=== PATIENT | female | born 1930 | race Caucasian/White ===

== ENCOUNTER 2018-12-22 10:49 | Day surgery (SDC) | payer MEDICARE, OTHER ==
[~2018-12-22] VITALS: Ht 152.4 cm; Wt 65.0 kg
[2018-12-22] VITALS (8 sets, daily range): BP systolic 124–154; BP diastolic 79–99
[2018-12-22] MEDS ORDERED: normal saline 1000ml 1,000 ML IV SCH (11:25)
[2018-12-22 11:56] LABS: BASOPHILS % (AUTO) 0.7 % (0-1); EOSINOPHILS # (AUTO) 0.1 X10'3 (0-0.9); EOSINOPHILS % (AUTO) 0.9 % (0-6); HEMATOCRIT 48.3 % (35.0-45.0); HEMOGLOBIN 16.1 g/dl (12.0-16.0); LYMPHOCYTES # (AUTO) 2.1 X10'3 (1.1-4.8); LYMPHOCYTES % (AUTO) 35.8 % (21-51); MEAN CORPUSCULAR HEMOGLOBIN 31.4 PG (27.0-31.0); MEAN CORPUSCULAR HGB CONC 33.3 g/dL (33.0-36.5); MEAN CORPUSCULAR VOLUME 94.4 FL (78-98); MEAN PLATELET VOLUME 9.3 FL (7.4-10.4); MONOCYTES # (AUTO) 0.5 X10'3 (0-0.9); MONOCYTES % (AUTO) 9.5 % (2-12); NEUTROPHILS # (AUTO) 3.1 X10'3 (1.8-7.7); NEUTROPHILS % (AUTO) 53.1 % (42-75); PLATELET COUNT 190 X10'3 (140-440); RED BLOOD COUNT 5.12 X10'6 (4.20-5.60); RED CELL DISTRIBUTION WIDTH 14.2 % (11.5-14.5); WHITE BLOOD COUNT 5.8 X10'3 (4.5-11.0)
[2018-12-22 11:58] LABS: ALBUMIN 3.7 G/DL (3.4-5.0); ANION GAP 9 (8-16); BLOOD UREA NITROGEN 18 MG/DL (7-18); BUN/CREATININE RATIO 20.9 (6.6-38.0); CALCIUM 9.5 MG/DL (8.5-10.1); CHLORIDE 107 MMOL/L (99-107); CREATININE 0.86 MG/DL (0.40-0.90); GLUCOSE 88 MG/DL (70-104); MAGNESIUM 1.9 MG/DL (1.5-2.4); POTASSIUM 3.7 MMOL/L (3.5-5.1); SODIUM 144 MMOL/L (135-145); TOTAL CARBON DIOXIDE 27.6 MMOL/L (24-32); eGFR 62 ML/MIN
[2018-12-22] MEDS ORDERED: vancomycin 1,000mg inj ONE (12:17)
[2018-12-22] MEDS ORDERED: midazolam 2 mg/2 ml injection ONE (12:17)
[2018-12-22] MEDS ORDERED: fentaNYL/PF 50MCG/1 ML 2ML syringe ONE (12:17)
[2018-12-22] MEDS ORDERED: CYAN200017 PO (12:51)
[2018-12-22] MEDS ORDERED: SIMV40TA PO (12:51)
[2018-12-22] MEDS ORDERED: DABI75CA3 PO (12:51)
[2018-12-22] MEDS ORDERED: CALC600T98 PO (12:51)
[2018-12-22] MEDS ORDERED: LEVO750T21 PO (12:51)
[2018-12-22] MEDS ORDERED: METO-384 PO (12:51)
[2018-12-22] MEDS ORDERED: CHLO25TA2 PO (12:51)
[2018-12-22] MEDS ORDERED: ESOM20CA PO (12:51)
[2018-12-22] MEDS ORDERED: NIFE90TA44 PO (12:51)
[2018-12-22] MEDS ORDERED: LEVO50TA8 PO (12:51)
[2018-12-22] MEDS ORDERED: ACET-2119 PO (12:51)
[2018-12-22] MEDS ORDERED: VITA100T3 PO (12:51)
[2018-12-22] MEDS ORDERED: HYDR-4353 PO (12:51)
[2018-12-22] MEDS ORDERED: FISH1CAP15 PO (12:51)
[2018-12-22] MEDS ORDERED: ceFAZolin 1GM/D5W- ADD-VANTAGE 100 ML IV ONE (12:51)
[2018-12-22] MEDS ORDERED: GENT30OI2 TOP (12:51)
[2018-12-22] MEDS ORDERED: ketorolac tromethamine 15mg/ml inj. IV ONE (14:25)
--- NOTE | 2018-12-22 15:45 | NUR ---
Chest x-ray done as ordered. Addendum: 12/22/18 at 1916 by Oswaldo Tate RN Amended: Links added.
== END 2018-12-22 16:10 | disposition home or self-care (01) ==
LOC: SSTAY O 10:49
PROVIDERS: ATTEND Internal Medicine Cardiovascular Disease
DX: I49.5 Sick sinus syndrome (principal); I48.1 Persistent atrial fibrillation; I10 Essential (primary) hypertension; E78.5 Hyperlipidemia, unspecified; E03.9 Hypothyroidism, unspecified; M06.9 Rheumatoid arthritis, unspecified; Z98.890 Other specified postprocedural states; Z87.891 Personal history of nicotine dependence; Z79.899 Other long term (current) drug therapy; Z88.8 Allergy status to other drugs, medicaments and biological substances
CPT/HCPCS: 33207; 36415; 71045; 80048; 83735; 85025; 85610; 93005; 99152; 99153; C1769; C1786; C1894; C1898; J0690; J1885; J2250; J3010; J3370; A4620